=== PATIENT | female | born 1940 | race Caucasian/White ===

== ENCOUNTER 2018-01-23 15:01 | Emergency (ER) | payer MEDICARE, MEDICAID ==
[~2018-01-23] VITALS: Ht 160 cm; Wt 100.7 kg
[~2018-01-23 15:01] MED LIST: ASPI-807 PO; ATOR20TA PO; DICL75TA PO; HYDR1POW18 PO; HYDR1TAB PO; MECL12.582 PO; METO25PO2 PO; POTA20TA74 PO; VALS160T2 PO
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
[2018-01-23 15:22] LABS: BASOPHILS # (AUTO) 0.1 /CMM (0.0-0.2); BASOPHILS % (AUTO) 1.3 % (0.0-2.0); HEMATOCRIT 35 % (33-45); HEMOGLOBIN 11.8 g/dL (11.5-14.8); LYMPHOCYTES # (AUTO) 1.7 /CMM (0.8-4.8); LYMPHOCYTES % (AUTO) 22.1 % (20.0-44.0); MEAN CORPUSCULAR HGB CONC 34 g/dl (31.0-36.0); MEAN CORPUSCULAR VOLUME 93 fL (82-100); MONOCYTES # (AUTO) 0.7 /CMM (0.1-1.30); NEUTROPHILS % (AUTO) 64.6 % (43.0-81.0); PLATELET COUNT (AUTO) 230 /CMM (150-450); RED BLOOD CELL COUNT(AUTO) 3.77 MIL/uL (4.0-5.2); WHITE BLOOD COUNT (AUTO) 7.7 K/uL (4.3-11.0)
[2018-01-23] MEDS ORDERED: ONDANSETRON HCL/PF 4 MG/2 ML VIAL ONE (15:24)
[2018-01-23] MEDS ORDERED: ACETAMINOPHEN ES 500 MG TABLET ONE (15:25)
[2018-01-23] MEDS ORDERED: MORPHINE SULFATE INJ 4 MG/ML DISP.SYRIN ONE (15:25)
[2018-01-23] MEDS ORDERED: ONDANSETRON HCL/PF 4 MG/2 ML VIAL IVP ONE (15:30)
[2018-01-23] MEDS ORDERED: ACETAMINOPHEN ES 500 MG TABLET PO ONE (15:30)
[2018-01-23] MEDS ORDERED: MORPHINE SULFATE INJ 2 MG/ML DISP.SYRIN IV ONE (15:30)
[2018-01-23] MEDS ORDERED: IV NS 0.9% 500 ML BAG IV ONE (15:30)
[2018-01-23 15:38] LABS: ALANINE AMINOTRANSFERASE 21 U/L (12-78); ALBUMIN 3.5 g/dL (3.4-5.0); ALKALINE PHOSPHATASE 57 U/L (46-116); ASPARTATE AMINOTRANSFERASE 16 U/L (15-37); BILIRUBIN,DIRECT 0.1 mg/dL (0.0-0.2); BILIRUBIN,TOTAL 0.3 mg/dL (0.2-1.0); CALCIUM, SERUM 8.5 mg/dL (8.5-10.1); CARBON DIOXIDE 32 mmol/L (21-32); CHLORIDE 104 mmol/L (98-107); CREATININE 0.9 mg/dL (0.6-1.3); GLUCOSE 142 mg/dL (74-106); POTASSIUM 3.7 mmol/L (3.5-5.1); SODIUM SERUM 138 mmol/L (136-145); UREA NITROGEN, BLOOD 18 mg/dL (7-18)
--- NOTE | 2018-01-23 15:38 | NUR ---
PER DR BASURTO. DO NOT WAIT FOR LAB RESULTS FOR CT SCAN.
[2018-01-23] MEDS ORDERED: IV NS 0.9% 250 ML IV ONE (15:40)
[2018-01-23] MEDS ORDERED: IOHEXOL-300 100 ML VIAL IV ONE (15:40)
[2018-01-23] MEDS ORDERED: CT SWABBABLE VALVE TRANS SET 1 EA INFUS.SET MC ONE (15:40)
--- NOTE | 2018-01-23 16:52 | NUR ---
PT RETURN FROM [facility]
[2018-01-23 18:23] VITALS: BP 136/78
== END 2018-01-23 18:23 | disposition home or self-care (01) ==
LOC: ER 15:09
DX: S63.591A Other specified sprain of right wrist, initial encounter (principal); S00.531A Contusion of lip, initial encounter; S29.8XXA Other specified injuries of thorax, initial encounter; R42 Dizziness and giddiness; E11.9 Type 2 diabetes mellitus without complications; R10.13 Epigastric pain; R07.89 Other chest pain; I10 Essential (primary) hypertension; Z96.653 Presence of artificial knee joint, bilateral; Z90.710 Acquired absence of both cervix and uterus; Z88.6 Allergy status to analgesic agent; Z79.82 Long term (current) use of aspirin; V49.59XA Passenger injured in collision with other motor vehicles in traffic accident, initial encounter; Y93.89 Activity, other specified; Y92.410 Unspecified street and highway as the place of occurrence of the external cause; Y99.8 Other external cause status
CPT/HCPCS: 29125; 36415; 71260; 73110; 74177; 80048; 80076; 83690; 84484; 85025; 93005; 96374; 96375; 99284; A4606; A6402; A6403; J2270; J2405; J7040; J7050; Q9967; Z7610

== ENCOUNTER 2023-09-05 16:07 | Inpatient (IN) | payer MEDICARE, OTHER ==
[~2023-09-05] VITALS: Ht 162.6 cm; Wt 87.5 kg
[2023-09-05] VITALS (7 sets, daily range): BP systolic 98–164; BP diastolic 56–132; TEMP 97.9; O2SAT 95–98
[~2023-09-05 16:07] MED LIST changes: +MECL-182 PO; -MECL12.582 PO
[2023-09-05] MEDS ORDERED: FUROSEMIDE 40 MG/4 ML VIAL ONE (16:19)
[2023-09-05] MEDS ORDERED: NITROGLYCERIN PACKET 1 GM PACKET ONE (16:20)
[2023-09-05] MEDS: FUROSEMIDE 40 MG/4 ML VIAL IV ONE (16:24)
[2023-09-05] MEDS: NITROGLYCERIN PACKET 1 GM PACKET TD ONE (16:24)
[2023-09-05 16:29] LABS: BASOPHILS # (AUTO) 0.1 K/uL (0.0-0.2); BASOPHILS % (AUTO) 1.2 % (0.0-2.0); EOSINOPHILS # (AUTO) 0.1 K/uL (0.0-0.7); EOSINOPHILS % (AUTO) 0.7 % (0.0-6.0); HEMATOCRIT 32 % (33-45); HEMOGLOBIN 10.2 g/dL (11.5-14.8); LYMPHOCYTES # (AUTO) 1.3 K/uL (0.8-4.8); LYMPHOCYTES % (AUTO) 10.7 % (20.0-44.0); MEAN CORPUSCULAR HEMOGLOBIN 29 PG (26.0-33.0); MEAN CORPUSCULAR HGB CONC 32 g/dl (31.0-36.0); MEAN CORPUSCULAR VOLUME 89 fL (82-100); MONOCYTES # (AUTO) 1.3 K/uL (0.1-1.30); MONOCYTES % (AUTO) 10.8 % (2.0-12.0); NEUTROPHILS # (AUTO) 9.4 K/uL (1.8-8.9); NEUTROPHILS % (AUTO) 76.6 % (43.0-81.0); PLATELET COUNT (AUTO) 368 K/uL (150-450); RED BLOOD CELL COUNT(AUTO) 3.55 MIL/uL (4.0-5.2); WHITE BLOOD COUNT (AUTO) 12.3 K/uL (4.3-11.0)
[2023-09-05 16:39] LABS: CALCIUM, SERUM 8.3 mg/dL (8.5-10.1); CARBON DIOXIDE 26 mmol/L (21-32); CHLORIDE 100 mmol/L (98-107); CREATININE 0.9 mg/dL (0.6-1.3); GLUCOSE 154 mg/dL (74-106); POTASSIUM 3.4 mmol/L (3.5-5.1); SODIUM SERUM 132 mmol/L (136-145); UREA NITROGEN, BLOOD 11 mg/dL (7-18)
[2023-09-05 16:52] LABS: NT-PRO BNP 3893 pg/mL (0-125)
[2023-09-05] MEDS ORDERED: CLON0.1T PO (17:50)
[2023-09-05] MEDS ORDERED: GLIM2TAB31 PO (17:50)
[2023-09-05] MEDS ORDERED: PREG-58 PO (17:50)
[2023-09-05] MEDS ORDERED: MECL-182 PO (17:50)
[2023-09-05] MEDS ORDERED: TRAM50TA2 PO (17:50)
[2023-09-05] MEDS ORDERED: POTA10TA11 PO (17:50)
[2023-09-05] MEDS ORDERED: HYDR100T27 PO (17:50)
[2023-09-05] MEDS ORDERED: METO50TA16 PO (17:50)
[2023-09-05] MEDS ORDERED: FURO40TA5 PO (17:50)
[2023-09-05] MEDS ORDERED: IPRATROPIUM/ALBUTEROL INHALER IH SCH (18:00)
[2023-09-05] MEDS ORDERED: hydrALAZINE HCL IV 20 MG VIAL IV PRN (18:00)
[2023-09-05] MEDS ORDERED: ONDANSETRON HCL/PF 4 MG/2 ML VIAL IVP PRN (18:00)
[2023-09-05] MEDS ORDERED: DEXTROSE 50%-WATER 50 ML DISP.SYRIN IV PRN (18:00)
[2023-09-05] MEDS: IPRATROPIUM NEB FS 0.5 MG/2.5 ML AMPUL.NEB NEB SCH (20:41)
[2023-09-05] MEDS: ALBUTEROL FS 2.5 MG/0.5 ML VIAL.NEB NEB PRN (20:41)
[2023-09-05] MEDS: ALBUTEROL FS 2.5 MG/3 ML VIAL.NEB NEB SCH (20:43)
[2023-09-05] MEDS: FUROSEMIDE 40 MG/4 ML VIAL IV SCH (21:13)
[2023-09-05] MEDS: HEPARIN SODIUM, PORCINE 5000 UNITS/1 ML VIAL SQ SCH (21:13)
[2023-09-05] MEDS: BLOOD SUGAR DIAGNOSTIC 1 EACH STRIP VI SCH (21:23)
[2023-09-05] MEDS: *INSULIN REGULAR(HUMULIN R)HUM 100 UNIT/ML VIAL SQ PRN (21:25)
[2023-09-06] VITALS (109 sets, daily range): BP systolic 64–179; BP diastolic 40–106; TEMP 97.1–98.1; O2SAT 68–100
[2023-09-06 04:57] LABS: BASOPHILS # (AUTO) 0.1 K/uL (0.0-0.2); BASOPHILS % (AUTO) 0.5 % (0.0-2.0); EOSINOPHILS % (AUTO) 0.3 % (0.0-6.0); HEMATOCRIT 36 % (33-45); HEMOGLOBIN 11.5 g/dL (11.5-14.8); LYMPHOCYTES # (AUTO) 1.2 K/uL (0.8-4.8); LYMPHOCYTES % (AUTO) 10.2 % (20.0-44.0); MEAN CORPUSCULAR HEMOGLOBIN 29 PG (26.0-33.0); MEAN CORPUSCULAR HGB CONC 32 g/dl (31.0-36.0); MEAN CORPUSCULAR VOLUME 90 fL (82-100); MONOCYTES # (AUTO) 1.1 K/uL (0.1-1.30); MONOCYTES % (AUTO) 9.3 % (2.0-12.0); NEUTROPHILS # (AUTO) 9.2 K/uL (1.8-8.9); NEUTROPHILS % (AUTO) 79.7 % (43.0-81.0); PLATELET COUNT (AUTO) 333 K/uL (150-450); RED BLOOD CELL COUNT(AUTO) 3.96 MIL/uL (4.0-5.2); RED CELL DISTRIBUTION WIDTH 14.2 % (11.5-15.0); WHITE BLOOD COUNT (AUTO) 11.5 K/uL (4.3-11.0)
[2023-09-06 05:22] LABS: ALANINE AMINOTRANSFERASE 22 U/L (12-78); ALBUMIN 2.2 g/dL (3.4-5.0); ALKALINE PHOSPHATASE 87 U/L (46-116); ASPARTATE AMINOTRANSFERASE 16 U/L (15-37); CALCIUM, SERUM 8.5 mg/dL (8.5-10.1); CARBON DIOXIDE 26 mmol/L (21-32); CHLORIDE 102 mmol/L (98-107); CREATININE 0.8 mg/dL (0.6-1.3); GLUCOSE 133 mg/dL (74-106); MAGNESIUM 1.7 mg/dL (1.8-2.4); PHOSPHORUS 3.4 mg/dL (2.5-4.9); SODIUM SERUM 140 mmol/L (136-145); UREA NITROGEN, BLOOD 11 mg/dL (7-18)
[2023-09-06] MEDS: ACETAMINOPHEN 325 MG TABLET PO PRN (05:36)
[2023-09-06] MEDS: NOREPINEPHRINE 8 MG in IV D5W 242 ML IV PRN (06:44)
[2023-09-06] MEDS: CLONIDINE HCL 0.1 MG TABLET PO SCH (08:16)
[2023-09-06] MEDS: hydrALAZINE HCL 50 MG TABLET PO SCH (08:16)
[2023-09-06] MEDS: METOPROLOL TARTRATE 50 MG TABLET PO SCH (08:17)
[2023-09-06] MEDS: PREGABALIN 25 MG CAPSULE PO SCH (08:40)
[2023-09-06] MEDS: FUROSEMIDE 40 MG/4 ML VIAL IV SCH (09:00)
[2023-09-06] MEDS: GABAPENTIN 300 MG CAPSULE PO SCH (09:07)
[2023-09-06] MEDS: AMIODARONE 150 MG in IV D5W 100 ML IV ONE (09:14)
[2023-09-06] MEDS: PHENYLEPHRINE 50 MG in IV NS 0.9% 245 ML IV PRN (09:15)
[2023-09-06] MEDS: AMIODARONE 450 MG in IV D5W 241 ML IV PRN ×2 (09:17→09:40)
[2023-09-06] MEDS: POTASSIUM CL. PREMIX PERIPHER. 50 ML IV SCH (09:41)
[2023-09-06] MEDS ORDERED: MAGNESIUM OXIDE 400 MG TABLET PO ONE (11:00)
[2023-09-06] MEDS: MORPHINE SULFATE INJ 2 MG/ML DISP.SYRIN IV PRN (11:00)
[2023-09-06] MEDS: ALBUMIN 25% 25 GM in PREMIX 1 EA IV ONE (13:02)
[2023-09-06] MEDS: Magnesium 1GM/D5W 100ML PREMIX 100 ML IV SCH (16:31)
[2023-09-06] MEDS: APIXABAN 5 MG TABLET PO SCH (17:05)
[2023-09-06 19:53] LABS: APPEARANCE,URINE CLEAR (CLEAR); BILIRUBIN,URINE NEGATIVE (NEGATIVE); BLOOD, URINE TRACE-INTA Ery/uL (NEGATIVE); COLOR,URINE YELLOW (YELLOW); KETONES,URINE NEGATIVE (NEGATIVE); LEUKOCYTE ESTERASE ,URINE NEGATIVE (NEGATIVE); NITRITE, URINE NEGATIVE (NEGATIVE); PROTEIN,URINE NEGATIVE (NEGATIVE); UGLUCOSE NEGATIVE (NEGATIVE); UROBILINOGEN,URINE 0.2 EU/dL (0.2)
[2023-09-06 20:12] LABS: ADD URINE CULTURE YES; BACTERIA,URINE 2+ /HPF (None Seen); TRICHOMONAS,URINE None Seen /HPF (None Seen); TYROSINE CRYSTAL,URINE Few /HPF (None Seen); YEAST,URINE None Seen /HPF (None Seen)
[2023-09-06 20:13] LABS: FINE GRANULAR CASTS,URINE Few /LPF (None Seen); HYALINE CASTS, URINE Few /LPF (None Seen)
[2023-09-07] VITALS (98 sets, daily range): BP systolic 70–160; BP diastolic 39–131; TEMP 97.2–99.3; O2SAT 91–100
[2023-09-07 05:11] LABS: BASOPHILS # (AUTO) 0.2 K/uL (0.0-0.2); EOSINOPHILS # (AUTO) 0.1 K/uL (0.0-0.7); EOSINOPHILS % (AUTO) 0.3 % (0.0-6.0); HEMATOCRIT 33 % (33-45); HEMOGLOBIN 10.5 g/dL (11.5-14.8); LYMPHOCYTES % (AUTO) 5.6 % (20.0-44.0); MEAN CORPUSCULAR HEMOGLOBIN 29 PG (26.0-33.0); MEAN CORPUSCULAR HGB CONC 32 g/dl (31.0-36.0); MEAN CORPUSCULAR VOLUME 91 fL (82-100); MONOCYTES # (AUTO) 1.4 K/uL (0.1-1.30); MONOCYTES % (AUTO) 8.4 % (2.0-12.0); NEUTROPHILS # (AUTO) 14.5 K/uL (1.8-8.9); NEUTROPHILS % (AUTO) 84.7 % (43.0-81.0); PLATELET COUNT (AUTO) 331 K/uL (150-450); RED BLOOD CELL COUNT(AUTO) 3.59 MIL/uL (4.0-5.2); RED CELL DISTRIBUTION WIDTH 14.7 % (11.5-15.0); WHITE BLOOD COUNT (AUTO) 17.1 K/uL (4.3-11.0)
[2023-09-07] MEDS: VANCOMYCIN 1.5 GM in IV D5W 500 ML IV ONE (09:45)
[2023-09-07 09:55] LABS: CALCIUM, SERUM 8.1 mg/dL (8.5-10.1); CARBON DIOXIDE 29 mmol/L (21-32); CHLORIDE 100 mmol/L (98-107); CREATININE 1.4 mg/dL (0.6-1.3); GLUCOSE 135 mg/dL (74-106); MAGNESIUM 1.9 mg/dL (1.8-2.4); PHOSPHORUS 3.4 mg/dL (2.5-4.9); POTASSIUM 3.7 mmol/L (3.5-5.1); SODIUM SERUM 139 mmol/L (136-145); UREA NITROGEN, BLOOD 21 mg/dL (7-18)
[2023-09-07] MEDS: INSULIN REGULAR, HUMAN 100 UNIT/ML 3 ML VIAL SQ PRN (11:30)
[2023-09-07] MEDS: FUROSEMIDE 20 MG/2 ML VIAL IV SCH (11:37)
[2023-09-07] MEDS: CEFEPIME 2 GM in IV D5W 100 ML IV SCH (11:46)
[2023-09-07] MEDS: AMIODARONE HCL 200 MG TABLET PO SCH (13:08)
[2023-09-07] MEDS: AMIODARONE 450 MG in IV D5W 241 ML IV PRN (18:09)
[2023-09-07] MEDS: AMIODARONE 150 MG in IV D5W 100 ML IV ONE (18:09)
[2023-09-07] MEDS: VANCOMYCIN 750 MG in IV D5W 250 ML IV SCH (21:32)
[2023-09-08] VITALS (85 sets, daily range): BP systolic 74–150; BP diastolic 22–119; TEMP 98.1–99.3; O2SAT 91–100
[2023-09-08 05:19] LABS: BASOPHILS # (AUTO) 0.1 K/uL (0.0-0.2); BASOPHILS % (AUTO) 0.5 % (0.0-2.0); EOSINOPHILS # (AUTO) 0.3 K/uL (0.0-0.7); EOSINOPHILS % (AUTO) 1.8 % (0.0-6.0); HEMATOCRIT 36 % (33-45); HEMOGLOBIN 11.6 g/dL (11.5-14.8); LYMPHOCYTES % (AUTO) 6.6 % (20.0-44.0); MEAN CORPUSCULAR HEMOGLOBIN 29 PG (26.0-33.0); MEAN CORPUSCULAR HGB CONC 32 g/dl (31.0-36.0); MEAN CORPUSCULAR VOLUME 90 fL (82-100); MONOCYTES # (AUTO) 1.3 K/uL (0.1-1.30); MONOCYTES % (AUTO) 8.7 % (2.0-12.0); NEUTROPHILS % (AUTO) 82.4 % (43.0-81.0); PLATELET COUNT (AUTO) 357 K/uL (150-450); RED BLOOD CELL COUNT(AUTO) 4.01 MIL/uL (4.0-5.2); RED CELL DISTRIBUTION WIDTH 14.6 % (11.5-15.0); WHITE BLOOD COUNT (AUTO) 14.6 K/uL (4.3-11.0)
[2023-09-08 05:30] LABS: ALANINE AMINOTRANSFERASE 11 U/L (12-78); ALBUMIN 2.1 g/dL (3.4-5.0); ALKALINE PHOSPHATASE 87 U/L (46-116); ASPARTATE AMINOTRANSFERASE 22 U/L (15-37); BILIRUBIN,TOTAL 1.1 mg/dL (0.2-1.0); CALCIUM, SERUM 8.3 mg/dL (8.5-10.1); CARBON DIOXIDE 28 mmol/L (21-32); CHLORIDE 101 mmol/L (98-107); CREATININE 1.3 mg/dL (0.6-1.3); GLUCOSE 121 mg/dL (74-106); POTASSIUM 3.5 mmol/L (3.5-5.1); SODIUM SERUM 138 mmol/L (136-145); TOTAL PROTEIN, SERUM 7.2 g/dL (6.4-8.2); UREA NITROGEN, BLOOD 25 mg/dL (7-18)
[2023-09-08 09:40] LABS: ABG BASE EXCESS 0.3 mmol/L (-2.0-2.0); ABG OXYGEN SATURATION 98.4 % (92.0-98.5); ABG PCO2 38.2 mmHg (35.0-45.0); ABG PH 7.425 (7.350-7.450); ABG PO2 139.7 mmHg (75.0-100.0); ABG TOTAL HEMOGLOBIN 12.1 G/dL (12.0-16.0); AaDO2 173.8 mmHg; COHb 0.2 % (0.5-1.5); MetHb 0.1 % (0.0-1.5); O2Hb 98.1 % (94.0-97.0); SITE, ABG Right Radial; VENT MODE, BG 15/5 r18 50%
[2023-09-08] MEDS: CEFEPIME 1 GM in IV D5W 50 ML IV SCH (10:16)
[2023-09-08] MEDS ORDERED: ALBUTEROL FS 2.5 MG/3 ML VIAL.NEB NEB PRN (10:30)
[2023-09-08] MEDS: AMIODARONE HCL 200 MG TABLET PO SCH (12:55)
[2023-09-09] VITALS (21 sets, daily range): BP systolic 90–135; BP diastolic 45–81; TEMP 97.5–98.7; O2SAT 90–99
[2023-09-09 04:27] LABS: BASOPHILS # (AUTO) 0.1 K/uL (0.0-0.2); BASOPHILS % (AUTO) 0.9 % (0.0-2.0); EOSINOPHILS # (AUTO) 0.4 K/uL (0.0-0.7); EOSINOPHILS % (AUTO) 3.3 % (0.0-6.0); HEMATOCRIT 30 % (33-45); HEMOGLOBIN 9.9 g/dL (11.5-14.8); LYMPHOCYTES # (AUTO) 0.7 K/uL (0.8-4.8); LYMPHOCYTES % (AUTO) 6.4 % (20.0-44.0); MEAN CORPUSCULAR HEMOGLOBIN 29 PG (26.0-33.0); MEAN CORPUSCULAR HGB CONC 33 g/dl (31.0-36.0); MEAN CORPUSCULAR VOLUME 89 fL (82-100); MONOCYTES # (AUTO) 1.1 K/uL (0.1-1.30); MONOCYTES % (AUTO) 10.1 % (2.0-12.0); NEUTROPHILS # (AUTO) 8.6 K/uL (1.8-8.9); NEUTROPHILS % (AUTO) 79.3 % (43.0-81.0); PLATELET COUNT (AUTO) 313 K/uL (150-450); RED BLOOD CELL COUNT(AUTO) 3.39 MIL/uL (4.0-5.2); RED CELL DISTRIBUTION WIDTH 14.3 % (11.5-15.0); WHITE BLOOD COUNT (AUTO) 10.9 K/uL (4.3-11.0)
[2023-09-09 05:00] LABS: CALCIUM, SERUM 8.1 mg/dL (8.5-10.1); CARBON DIOXIDE 28 mmol/L (21-32); CHLORIDE 104 mmol/L (98-107); CREATININE 1.2 mg/dL (0.6-1.3); GLUCOSE 131 mg/dL (74-106); MAGNESIUM 1.7 mg/dL (1.8-2.4); PHOSPHORUS 3.6 mg/dL (2.5-4.9); POTASSIUM 3.1 mmol/L (3.5-5.1); SODIUM SERUM 140 mmol/L (136-145); UREA NITROGEN, BLOOD 28 mg/dL (7-18)
[2023-09-09] MEDS: POTASSIUM CHLORIDE 20 MEQ TAB.PRT.SR PO ONE (09:03)
[2023-09-09] MEDS: MIDODRINE HCL (5MG) 5 MG TABLET PO SCH (09:27)
[2023-09-09] MEDS ORDERED: MAGNESIUM OXIDE 400 MG TABLET PO SCH (10:00)
[2023-09-09] MEDS: VANCOMYCIN HCL 1.25 GM in IV D5W 250 ML IV SCH (13:38)
[2023-09-09] MEDS: MAGNESIUM OXIDE 400 MG TABLET PO ONE (22:01)
[2023-09-10] VITALS (14 sets, daily range): BP systolic 110–154; BP diastolic 53–81; TEMP 97.3–98.6; O2SAT 92–99
[2023-09-10 07:23] LABS: BASOPHILS # (AUTO) 0.1 K/uL (0.0-0.2); BASOPHILS % (AUTO) 0.7 % (0.0-2.0); EOSINOPHILS # (AUTO) 0.4 K/uL (0.0-0.7); EOSINOPHILS % (AUTO) 4.8 % (0.0-6.0); HEMATOCRIT 33 % (33-45); HEMOGLOBIN 10.7 g/dL (11.5-14.8); LYMPHOCYTES # (AUTO) 0.8 K/uL (0.8-4.8); LYMPHOCYTES % (AUTO) 9.3 % (20.0-44.0); MEAN CORPUSCULAR HEMOGLOBIN 29 PG (26.0-33.0); MEAN CORPUSCULAR HGB CONC 33 g/dl (31.0-36.0); MEAN CORPUSCULAR VOLUME 90 fL (82-100); MONOCYTES # (AUTO) 0.8 K/uL (0.1-1.30); MONOCYTES % (AUTO) 9.7 % (2.0-12.0); NEUTROPHILS # (AUTO) 6.1 K/uL (1.8-8.9); NEUTROPHILS % (AUTO) 75.5 % (43.0-81.0); PLATELET COUNT (AUTO) 328 K/uL (150-450); RED BLOOD CELL COUNT(AUTO) 3.64 MIL/uL (4.0-5.2); RED CELL DISTRIBUTION WIDTH 14.3 % (11.5-15.0); WHITE BLOOD COUNT (AUTO) 8.1 K/uL (4.3-11.0)
[2023-09-10 07:44] LABS: CALCIUM, SERUM 8.6 mg/dL (8.5-10.1); CARBON DIOXIDE 27 mmol/L (21-32); CHLORIDE 105 mmol/L (98-107); CREATININE 1.1 mg/dL (0.6-1.3); GLUCOSE 126 mg/dL (74-106); POTASSIUM 2.9 mmol/L (3.5-5.1); SODIUM SERUM 146 mmol/L (136-145); UREA NITROGEN, BLOOD 24 mg/dL (7-18)
[2023-09-10 07:45] LABS: ALANINE AMINOTRANSFERASE 18 U/L (12-78); ALKALINE PHOSPHATASE 79 U/L (46-116); ASPARTATE AMINOTRANSFERASE 24 U/L (15-37); BILIRUBIN,TOTAL 0.8 mg/dL (0.2-1.0); TOTAL PROTEIN, SERUM 6.9 g/dL (6.4-8.2)
[2023-09-10 08:10] LABS: MAGNESIUM 1.9 mg/dL (1.8-2.4); PHOSPHORUS 3.1 mg/dL (2.5-4.9)
[2023-09-10] MEDS: CEFEPIME 2 GM in IV D5W 100 ML IV SCH (09:40)
[2023-09-10] MEDS: POTASSIUM CL. PREMIX PERIPHER. 50 ML IV SCH (10:26)
[2023-09-10] MEDS: GLUCERNA SHAKE 237 ML CAN PO SCH (17:22)
[2023-09-11] VITALS (11 sets, daily range): BP systolic 102–130; BP diastolic 63–66; TEMP 97.9–98.2; O2SAT 92–98
[2023-09-11 06:38] LABS: MAGNESIUM 1.8 mg/dL (1.8-2.4); PHOSPHORUS 3.1 mg/dL (2.5-4.9)
[2023-09-11 06:54] LABS: ALANINE AMINOTRANSFERASE 18 U/L (12-78); ALBUMIN 1.9 g/dL (3.4-5.0); ALKALINE PHOSPHATASE 67 U/L (46-116); ASPARTATE AMINOTRANSFERASE 26 U/L (15-37); BILIRUBIN,TOTAL 0.5 mg/dL (0.2-1.0); CALCIUM, SERUM 8.3 mg/dL (8.5-10.1); CARBON DIOXIDE 29 mmol/L (21-32); CHLORIDE 107 mmol/L (98-107); CREATININE 1.1 mg/dL (0.6-1.3); GLUCOSE 112 mg/dL (74-106); POTASSIUM 3.3 mmol/L (3.5-5.1); SODIUM SERUM 144 mmol/L (136-145); TOTAL PROTEIN, SERUM 6.6 g/dL (6.4-8.2); UREA NITROGEN, BLOOD 22 mg/dL (7-18)
[2023-09-11 06:59] LABS: BASOPHILS # (AUTO) 0.1 K/uL (0.0-0.2); BASOPHILS % (AUTO) 1.2 % (0.0-2.0); EOSINOPHILS # (AUTO) 0.4 K/uL (0.0-0.7); EOSINOPHILS % (AUTO) 8.9 % (0.0-6.0); HEMATOCRIT 29 % (33-45); HEMOGLOBIN 9.6 g/dL (11.5-14.8); LYMPHOCYTES # (AUTO) 0.7 K/uL (0.8-4.8); LYMPHOCYTES % (AUTO) 14.7 % (20.0-44.0); MEAN CORPUSCULAR HEMOGLOBIN 30 PG (26.0-33.0); MEAN CORPUSCULAR HGB CONC 33 g/dl (31.0-36.0); MEAN CORPUSCULAR VOLUME 90 fL (82-100); MONOCYTES % (AUTO) 19.1 % (2.0-12.0); NEUTROPHILS # (AUTO) 2.8 K/uL (1.8-8.9); NEUTROPHILS % (AUTO) 56.1 % (43.0-81.0); PLATELET COUNT (AUTO) 266 K/uL (150-450); RED BLOOD CELL COUNT(AUTO) 3.25 MIL/uL (4.0-5.2)
[2023-09-11 09:45] LABS: EOSINOPHILS % (MANUAL) 8 % (0-4); LYMPHOCYTES % (MANUAL) 17 % (16-48); MONOCYTES % (MANUAL) 14 % (0-11.0); NEUTROPHILS % (MANUAL) 61 (42-76); PLATELET ESTIMATE ADEQUATE
[2023-09-11 09:48] LABS: STOMATOCYTES 1+
[2023-09-11] MEDS: POTASSIUM CHLORIDE 20 MEQ TAB.PRT.SR PO SCH (10:36)
[2023-09-11] MEDS ORDERED: APIX5TAB PO (13:48)
[2023-09-11] MEDS ORDERED: ALBUT2 NEB (13:48)
[2023-09-11] MEDS ORDERED: INSU100V28 SQ (13:48)
[2023-09-11] MEDS ORDERED: MIDO5TAB4 PO (13:48)
[2023-09-11] MEDS ORDERED: IPRA0.2S9 NEB (13:48)
[2023-09-11] MEDS ORDERED: AMIO200T7 PO (13:48)
[2023-09-11] MEDS ORDERED: AMOX-430 PO (14:56)
== END 2023-09-11 16:58 | DRG 291 ==
LOC: ER 16:18 → ICU 19:05 → TELE-TD 09-09 10:31 → TELE1 09-10 13:09 → MEDSG1 09-11 09:47
PROVIDERS: ADMIT Internal Medicine; ATTEND Student in an Organized Health Care Education/Training Program
PROC: 5A09457 Assistance with Respiratory Ventilation, 24-96 Consecutive Hours, Continuous Positive Airway Pressure (ICD-10-PCS; principal; 2023-09-05)
DX: I13.0 Hypertensive heart and chronic kidney disease with heart failure and stage 1 through stage 4 chronic kidney disease, or unspecified chronic kidney disease (principal); I50.33 Acute on chronic diastolic (congestive) heart failure; J96.01 Acute respiratory failure with hypoxia; R57.1 Hypovolemic shock; N17.9 Acute kidney failure, unspecified; D64.9 Anemia, unspecified; N18.9 Chronic kidney disease, unspecified; I25.2 Old myocardial infarction; H93.19 Tinnitus, unspecified ear; E11.40 Type 2 diabetes mellitus with diabetic neuropathy, unspecified; E11.22 Type 2 diabetes mellitus with diabetic chronic kidney disease; M06.9 Rheumatoid arthritis, unspecified; Z90.710 Acquired absence of both cervix and uterus; Z98.890 Other specified postprocedural states; Z88.8 Allergy status to other drugs, medicaments and biological substances; Z79.899 Other long term (current) drug therapy; Z79.82 Long term (current) use of aspirin; D72.829 Elevated white blood cell count, unspecified; E83.42 Hypomagnesemia; E87.6 Hypokalemia; I48.0 Paroxysmal atrial fibrillation
CPT/HCPCS: 36415; 36600; 71045-TC; 80048-TC; 80053-TC; 80202-TC; 81001; 82803-TC; 82962-TC; 83735-TC; 83880; 84100-TC; 84484-TC; 85025-TC; 87086-TC; 92526; 92611-TC; 93307-TC; 93970-TC; 94660; 94799-TC; 97110-TC; 97116-TC; 97530-TC; 99082-TC; A4216; A4223; G0378; J0282; J0360; J0692; J1644; J1815; J1940; J2270; J3371; J3475; J3480; J7050; J7060; P9047

== ENCOUNTER 2023-09-26 08:49 | Inpatient (IN) | payer MEDICARE, OTHER ==
[~2023-09-26] VITALS: Ht 162.6 cm; Wt 88.5 kg
[~2023-09-26 08:49] MED LIST changes: +ALBUT2 NEB; +AMIO200T7 PO; +AMOX-430 PO; +APIX5TAB PO; -ASPI-807 PO; -ATOR20TA PO; +CLON0.1T PO; -DICL75TA PO; +FURO40TA5 PO; +GLIM2TAB31 PO; +HYDR100T27 PO; -HYDR1POW18 PO; -HYDR1TAB PO; +INSU100V28 SQ; +IPRA0.2S9 NEB; -METO25PO2 PO; +METO50TA16 PO; +MIDO5TAB4 PO; +POTA10TA11 PO; -POTA20TA74 PO; +PREG-58 PO; +TRAM50TA2 PO; -VALS160T2 PO
[2023-09-26 09:37] LABS: BASOPHILS # (AUTO) 0.1 K/uL (0.0-0.2); EOSINOPHILS % (AUTO) 0.2 % (0.0-6.0); HEMATOCRIT 26 % (33-45); HEMOGLOBIN 8.6 g/dL (11.5-14.8); LYMPHOCYTES # (AUTO) 1.1 K/uL (0.8-4.8); LYMPHOCYTES % (AUTO) 12.2 % (20.0-44.0); MEAN CORPUSCULAR HEMOGLOBIN 29 PG (26.0-33.0); MEAN CORPUSCULAR HGB CONC 33 g/dl (31.0-36.0); MEAN CORPUSCULAR VOLUME 88 fL (82-100); MONOCYTES # (AUTO) 1.1 K/uL (0.1-1.30); MONOCYTES % (AUTO) 11.6 % (2.0-12.0); NEUTROPHILS # (AUTO) 6.8 K/uL (1.8-8.9); PLATELET COUNT (AUTO) 180 K/uL (150-450); RED BLOOD CELL COUNT(AUTO) 2.99 MIL/uL (4.0-5.2); RED CELL DISTRIBUTION WIDTH 14.3 % (11.5-15.0); WHITE BLOOD COUNT (AUTO) 9.1 K/uL (4.3-11.0)
[2023-09-26 09:49] LABS: CALCIUM, SERUM 8.5 mg/dL (8.5-10.1); CARBON DIOXIDE 34 mmol/L (21-32); CHLORIDE 98 mmol/L (98-107); CREATININE 1.5 mg/dL (0.6-1.3); GLUCOSE 127 mg/dL (74-106); POTASSIUM 2.9 mmol/L (3.5-5.1); SODIUM SERUM 139 mmol/L (136-145); UREA NITROGEN, BLOOD 29 mg/dL (7-18)
[2023-09-26 09:55] LABS: LACTIC ACID 0.8 mmol/L (0.4-2.0)
[2023-09-26 10:01] LABS: ALBUMIN 2.1 g/dL (3.4-5.0); ALKALINE PHOSPHATASE 71 U/L (46-116); ASPARTATE AMINOTRANSFERASE 7 U/L (15-37); BILIRUBIN,DIRECT 0.3 mg/dL (0.0-0.2); BILIRUBIN,TOTAL 0.6 mg/dL (0.2-1.0); TOTAL PROTEIN, SERUM 7.1 g/dL (6.4-8.2)
[2023-09-26 10:12] LABS: ALANINE AMINOTRANSFERASE 10 U/L (12-78)
[2023-09-26 10:38] LABS: APPEARANCE,URINE CLEAR (CLEAR); BILIRUBIN,URINE NEGATIVE (NEGATIVE); BLOOD, URINE NEGATIVE Ery/uL (NEGATIVE); COLOR,URINE YELLOW (YELLOW); KETONES,URINE NEGATIVE (NEGATIVE); LEUKOCYTE ESTERASE ,URINE NEGATIVE (NEGATIVE); NITRITE, URINE NEGATIVE (NEGATIVE); PH,URINE 5.5 (5.0-8.0); PROTEIN,URINE NEGATIVE (NEGATIVE); UGLUCOSE NEGATIVE (NEGATIVE)
[2023-09-26 10:53] LABS: ADD URINE CULTURE NO; BACTERIA,URINE Rare /HPF (None Seen); RBC,URINE 0-2 /HPF (0-2); SQUAMOUS EPITHELIAL CELL,UR Few /HPF (None Seen); WBC,URINE 0-2 /HPF (0-3)
[2023-09-26] MEDS ORDERED: APIX5TAB PO (10:53)
[2023-09-26] MEDS ORDERED: AMIO200T5 PO (10:53)
[2023-09-26 12:00] VITALS: BP 106/56; TEMP 98.2; O2SAT 100
[2023-09-26] MEDS ORDERED: MAG HYDROX/AL HYDROX/SIMETH 30 ML UDC PO PRN (12:30)
[2023-09-26] MEDS ORDERED: ZOLPIDEM TARTRATE 5 MG TABLET PO PRN (12:30)
[2023-09-26] MEDS ORDERED: Z GUARD REMEDY 4 OZ OINT TP PRN (12:30)
[2023-09-26] MEDS ORDERED: ACETAMINOPHEN 325 MG TABLET PO PRN (12:30)
[2023-09-26] MEDS ORDERED: ONDANSETRON HCL/PF 4 MG/2 ML VIAL IVP PRN (12:30)
[2023-09-26] MEDS: POTASSIUM CL. PREMIX PERIPHER. 50 ML IV SCH (14:10)
[2023-09-26] MEDS: FUROSEMIDE 40 MG/4 ML VIAL IV SCH (15:01)
[2023-09-26 16:43] VITALS: BP 115/54; TEMP 98.5; O2SAT 97
[2023-09-26 20:00] VITALS: BP 134/62; TEMP 98.2; O2SAT 97
[2023-09-26] MEDS: INSULIN REGULAR, HUMAN 100 UNIT/ML 3 ML VIAL SQ PRN (22:32)
[2023-09-26] MEDS: BLOOD SUGAR DIAGNOSTIC 1 EACH STRIP VI SCH (22:33)
[2023-09-27] VITALS: BP 107/89; TEMP 98.2; O2SAT 96
[2023-09-27 04:00] VITALS: BP 156/81; TEMP 98.2; O2SAT 100
[2023-09-27 08:00] VITALS: BP 139/54; TEMP 98.4; O2SAT 93
[2023-09-27] MEDS: PANTOPRAZOLE 40 MG TABLET.DR PO SCH (08:01)
[2023-09-27] MEDS: CLONIDINE HCL 0.1 MG TABLET PO SCH (09:00)
[2023-09-27] MEDS: hydrALAZINE HCL 50 MG TABLET PO SCH (09:00)
[2023-09-27] MEDS: PREGABALIN 25 MG CAPSULE PO SCH (09:20)
[2023-09-27] MEDS: METOPROLOL TARTRATE 50 MG TABLET PO SCH (09:21)
[2023-09-27] MEDS: MECLIZINE HCL 12.5 MG TABLET PO SCH (09:21)
[2023-09-27] MEDS: AMIODARONE HCL 200 MG TABLET PO SCH (09:23)
[2023-09-27] MEDS: TRAMADOL HCL 50 MG TABLET PO SCH (09:23)
[2023-09-27] MEDS: APIXABAN 2.5 MG TABLET PO SCH (09:26)
[2023-09-27 09:32] LABS: BASOPHILS # (AUTO) 0.1 K/uL (0.0-0.2); BASOPHILS % (AUTO) 1.1 % (0.0-2.0); EOSINOPHILS # (AUTO) 0.1 K/uL (0.0-0.7); EOSINOPHILS % (AUTO) 0.7 % (0.0-6.0); HEMATOCRIT 30 % (33-45); HEMOGLOBIN 9.8 g/dL (11.5-14.8); LYMPHOCYTES # (AUTO) 0.9 K/uL (0.8-4.8); MEAN CORPUSCULAR HEMOGLOBIN 29 PG (26.0-33.0); MEAN CORPUSCULAR HGB CONC 32 g/dl (31.0-36.0); MEAN CORPUSCULAR VOLUME 89 fL (82-100); MONOCYTES # (AUTO) 1.1 K/uL (0.1-1.30); MONOCYTES % (AUTO) 12.4 % (2.0-12.0); NEUTROPHILS # (AUTO) 6.7 K/uL (1.8-8.9); NEUTROPHILS % (AUTO) 75.8 % (43.0-81.0); PLATELET COUNT (AUTO) 206 K/uL (150-450); RED BLOOD CELL COUNT(AUTO) 3.42 MIL/uL (4.0-5.2); RED CELL DISTRIBUTION WIDTH 14.7 % (11.5-15.0); WHITE BLOOD COUNT (AUTO) 8.8 K/uL (4.3-11.0)
[2023-09-27 09:56] LABS: CARBON DIOXIDE 31 mmol/L (21-32); CHLORIDE 101 mmol/L (98-107); CREATININE 1.2 mg/dL (0.6-1.3); GLUCOSE 87 mg/dL (74-106); MAGNESIUM 1.3 mg/dL (1.8-2.4); PHOSPHORUS 3.4 mg/dL (2.5-4.9); POTASSIUM 3.2 mmol/L (3.5-5.1); SODIUM SERUM 142 mmol/L (136-145); UREA NITROGEN, BLOOD 23 mg/dL (7-18)
[2023-09-27 12:00] VITALS: BP 118/67; TEMP 98.2; O2SAT 96
[2023-09-27] MEDS: POTASSIUM CHLORIDE 20 MEQ TAB.PRT.SR PO ONE (13:43)
[2023-09-27 16:00] VITALS: BP 112/64; TEMP 98.2; O2SAT 93
[2023-09-27] MEDS: GLUCERNA SHAKE 237 ML CAN PO SCH (18:54)
[2023-09-28 06:00] VITALS: BP 112/64; TEMP 98.2; O2SAT 93
[2023-09-28 07:50] LABS: BASOPHILS # (AUTO) 0.1 K/uL (0.0-0.2); BASOPHILS % (AUTO) 1.1 % (0.0-2.0); EOSINOPHILS # (AUTO) 0.5 K/uL (0.0-0.7); EOSINOPHILS % (AUTO) 5.5 % (0.0-6.0); HEMATOCRIT 28 % (33-45); LYMPHOCYTES # (AUTO) 1.6 K/uL (0.8-4.8); LYMPHOCYTES % (AUTO) 18.5 % (20.0-44.0); MEAN CORPUSCULAR HEMOGLOBIN 29 PG (26.0-33.0); MEAN CORPUSCULAR HGB CONC 32 g/dl (31.0-36.0); MEAN CORPUSCULAR VOLUME 91 fL (82-100); MONOCYTES # (AUTO) 1.3 K/uL (0.1-1.30); MONOCYTES % (AUTO) 14.5 % (2.0-12.0); NEUTROPHILS # (AUTO) 5.2 K/uL (1.8-8.9); NEUTROPHILS % (AUTO) 60.4 % (43.0-81.0); PLATELET COUNT (AUTO) 182 K/uL (150-450); RED BLOOD CELL COUNT(AUTO) 3.07 MIL/uL (4.0-5.2); RED CELL DISTRIBUTION WIDTH 14.9 % (11.5-15.0); WHITE BLOOD COUNT (AUTO) 8.6 K/uL (4.3-11.0)
[2023-09-28 08:00] VITALS: BP 141/66; TEMP 97.9; O2SAT 97
[2023-09-28 08:26] LABS: CALCIUM, SERUM 8.6 mg/dL (8.5-10.1); CARBON DIOXIDE 27 mmol/L (21-32); CHLORIDE 104 mmol/L (98-107); CREATININE 1.1 mg/dL (0.6-1.3); GLUCOSE 86 mg/dL (74-106); MAGNESIUM 1.6 mg/dL (1.8-2.4); PHOSPHORUS 3.3 mg/dL (2.5-4.9); POTASSIUM 4.2 mmol/L (3.5-5.1); SODIUM SERUM 143 mmol/L (136-145); UREA NITROGEN, BLOOD 26 mg/dL (7-18)
[2023-09-28] MEDS: MAGNESIUM OXIDE 400 MG TABLET PO ONE (09:57)
[2023-09-28 12:00] VITALS: BP 116/60; TEMP 98.1; O2SAT 98
[2023-09-28 17:00] VITALS: BP 106/60; TEMP 98.4; O2SAT 98
[2023-09-28 20:00] VITALS: BP 112/94; TEMP 98.6; O2SAT 99
[2023-09-28] MEDS: *INSULIN REGULAR(HUMULIN R)HUM 100 UNIT/ML VIAL SQ PRN (22:47)
[2023-09-29] VITALS: BP 137/75; TEMP 98.4; O2SAT 98
[2023-09-29 04:00] VITALS: BP 138/79; TEMP 98.1; O2SAT 98
[2023-09-29 07:15] LABS: BASOPHILS # (AUTO) 0.1 K/uL (0.0-0.2); BASOPHILS % (AUTO) 0.9 % (0.0-2.0); EOSINOPHILS # (AUTO) 0.3 K/uL (0.0-0.7); EOSINOPHILS % (AUTO) 3.8 % (0.0-6.0); HEMATOCRIT 31 % (33-45); HEMOGLOBIN 9.7 g/dL (11.5-14.8); LYMPHOCYTES # (AUTO) 0.6 K/uL (0.8-4.8); LYMPHOCYTES % (AUTO) 6.6 % (20.0-44.0); MEAN CORPUSCULAR HEMOGLOBIN 29 PG (26.0-33.0); MEAN CORPUSCULAR HGB CONC 31 g/dl (31.0-36.0); MEAN CORPUSCULAR VOLUME 92 fL (82-100); MONOCYTES % (AUTO) 11.8 % (2.0-12.0); NEUTROPHILS # (AUTO) 6.7 K/uL (1.8-8.9); NEUTROPHILS % (AUTO) 76.9 % (43.0-81.0); PLATELET COUNT (AUTO) 186 K/uL (150-450); RED BLOOD CELL COUNT(AUTO) 3.33 MIL/uL (4.0-5.2); WHITE BLOOD COUNT (AUTO) 8.8 K/uL (4.3-11.0)
[2023-09-29 08:00] VITALS: BP 117/62; TEMP 98.6; O2SAT 95
[2023-09-29 08:42] LABS: ALBUMIN 2.2 g/dL (3.4-5.0); ALKALINE PHOSPHATASE 72 U/L (46-116); ASPARTATE AMINOTRANSFERASE 9 U/L (15-37); BILIRUBIN,TOTAL 0.6 mg/dL (0.2-1.0); CALCIUM, SERUM 8.9 mg/dL (8.5-10.1); CARBON DIOXIDE 31 mmol/L (21-32); CHLORIDE 102 mmol/L (98-107); GLUCOSE 117 mg/dL (74-106); MAGNESIUM 1.6 mg/dL (1.8-2.4); PHOSPHORUS 3.6 mg/dL (2.5-4.9); POTASSIUM 3.5 mmol/L (3.5-5.1); SODIUM SERUM 140 mmol/L (136-145); TOTAL PROTEIN, SERUM 7.3 g/dL (6.4-8.2); UREA NITROGEN, BLOOD 20 mg/dL (7-18)
[2023-09-29 08:50] LABS: ALANINE AMINOTRANSFERASE 9 U/L (12-78)
[2023-09-29] MEDS: MAGNESIUM OXIDE 400 MG TABLET PO ONE (10:32)
[2023-09-29] MEDS: MAGNESIUM HYDROXIDE 30 ML UDC PO PRN (11:51)
[2023-09-29 12:00] VITALS: BP 117/62; TEMP 98.2; O2SAT 95
[2023-09-29 16:00] VITALS: BP 102/64; TEMP 98; O2SAT 95
[2023-09-29] MEDS: CLOTRIMAZOLE 1% 15 GM TUBE TP SCH (17:09)
[2023-09-29 20:15] VITALS: BP 108/67; TEMP 98.1; O2SAT 95
[2023-09-30 00:20] VITALS: BP 115/62; TEMP 98.2; O2SAT 95
[2023-09-30 04:15] VITALS: BP 141/75; TEMP 98.1; O2SAT 94
[2023-09-30 07:14] LABS: BASOPHILS # (AUTO) 0.1 K/uL (0.0-0.2); BASOPHILS % (AUTO) 0.7 % (0.0-2.0); EOSINOPHILS # (AUTO) 0.1 K/uL (0.0-0.7); EOSINOPHILS % (AUTO) 0.8 % (0.0-6.0); HEMATOCRIT 28 % (33-45); HEMOGLOBIN 9.2 g/dL (11.5-14.8); LYMPHOCYTES % (AUTO) 12.9 % (20.0-44.0); MEAN CORPUSCULAR HEMOGLOBIN 29 PG (26.0-33.0); MEAN CORPUSCULAR HGB CONC 33 g/dl (31.0-36.0); MEAN CORPUSCULAR VOLUME 89 fL (82-100); MONOCYTES % (AUTO) 12.8 % (2.0-12.0); NEUTROPHILS # (AUTO) 5.6 K/uL (1.8-8.9); NEUTROPHILS % (AUTO) 72.8 % (43.0-81.0); PLATELET COUNT (AUTO) 203 K/uL (150-450); RED BLOOD CELL COUNT(AUTO) 3.14 MIL/uL (4.0-5.2); RED CELL DISTRIBUTION WIDTH 14.8 % (11.5-15.0); WHITE BLOOD COUNT (AUTO) 7.7 K/uL (4.3-11.0)
[2023-09-30 07:45] LABS: CALCIUM, SERUM 9.1 mg/dL (8.5-10.1); CARBON DIOXIDE 31 mmol/L (21-32); CHLORIDE 101 mmol/L (98-107); CREATININE 1.1 mg/dL (0.6-1.3); GLUCOSE 124 mg/dL (74-106); MAGNESIUM 2.3 mg/dL (1.8-2.4); PHOSPHORUS 3.9 mg/dL (2.5-4.9); POTASSIUM 3.6 mmol/L (3.5-5.1); SODIUM SERUM 140 mmol/L (136-145); UREA NITROGEN, BLOOD 26 mg/dL (7-18)
[2023-09-30 08:00] VITALS: BP 131/56; TEMP 98.4; O2SAT 96
[2023-09-30] MEDS: LACTULOSE 10 G/15 ML UDC (PYXIS) PO ONE (14:57)
[2023-09-30] MEDS: SORBITOL SOLUTION 70% 30 ML SOLUTION PO ONE (15:16)
[2023-09-30 16:00] VITALS: BP 120/70; TEMP 98.4; O2SAT 94
[2023-09-30 18:10] VITALS: O2SAT 96
[2023-09-30 20:00] VITALS: BP 109/52; TEMP 98.4; O2SAT 94
[2023-10-01 04:00] VITALS: BP 132/77; TEMP 98.2; O2SAT 96
[2023-10-01] MEDS ORDERED: NA PHOS,M-B/NA PHOS,DI-BA 1 EA ENEMA RC PRN (07:00)
[2023-10-01 07:10] LABS: BASOPHILS # (AUTO) 0.1 K/uL (0.0-0.2); BASOPHILS % (AUTO) 0.8 % (0.0-2.0); EOSINOPHILS # (AUTO) 0.2 K/uL (0.0-0.7); EOSINOPHILS % (AUTO) 2.4 % (0.0-6.0); HEMATOCRIT 30 % (33-45); HEMOGLOBIN 9.8 g/dL (11.5-14.8); LYMPHOCYTES # (AUTO) 1.3 K/uL (0.8-4.8); LYMPHOCYTES % (AUTO) 16.3 % (20.0-44.0); MEAN CORPUSCULAR HEMOGLOBIN 29 PG (26.0-33.0); MEAN CORPUSCULAR HGB CONC 33 g/dl (31.0-36.0); MEAN CORPUSCULAR VOLUME 90 fL (82-100); MONOCYTES % (AUTO) 12.6 % (2.0-12.0); NEUTROPHILS # (AUTO) 5.5 K/uL (1.8-8.9); NEUTROPHILS % (AUTO) 67.9 % (43.0-81.0); PLATELET COUNT (AUTO) 196 K/uL (150-450); RED BLOOD CELL COUNT(AUTO) 3.34 MIL/uL (4.0-5.2); RED CELL DISTRIBUTION WIDTH 14.6 % (11.5-15.0)
[2023-10-01 07:30] LABS: CALCIUM, SERUM 8.8 mg/dL (8.5-10.1); CARBON DIOXIDE 37 mmol/L (21-32); CHLORIDE 102 mmol/L (98-107); CREATININE 1.2 mg/dL (0.6-1.3); GLUCOSE 111 mg/dL (74-106); MAGNESIUM 2.5 mg/dL (1.8-2.4); PHOSPHORUS 3.3 mg/dL (2.5-4.9); POTASSIUM 3.5 mmol/L (3.5-5.1); SODIUM SERUM 141 mmol/L (136-145); UREA NITROGEN, BLOOD 30 mg/dL (7-18)
[2023-10-01 12:00] VITALS: BP 110/57; TEMP 98.8; O2SAT 92
[2023-10-01 15:03] VITALS: O2SAT 97
[2023-10-01 16:00] VITALS: BP 106/56; TEMP 98.2; O2SAT 100
[2023-10-01 20:00] VITALS: BP 106/52; TEMP 97.7; O2SAT 96
[2023-10-02 04:00] VITALS: BP 147/73; TEMP 98.1; O2SAT 98
[2023-10-02 08:00] VITALS: BP 122/71; TEMP 98.4; O2SAT 95
[2023-10-02] MEDS: FUROSEMIDE 40 MG TABLET PO SCH (10:25)
[2023-10-02 12:18] VITALS: BP 100/49
[2023-10-03] MEDS ORDERED: PANTOPRAZOLE 40 MG/PACK PACK NG SCH (07:30)
== END 2023-10-02 14:21 | disposition home health service (06) | DRG 291 ==
LOC: ER 09:02 → TELE-TD 11:30 → TELE1 13:02 → MEDSG1 09-30 10:11
PROVIDERS: ADMIT Internal Medicine; ATTEND Nurse Practitioner Acute Care
PROC: 05HC33Z Insertion of Infusion Device into Left Basilic Vein, Percutaneous Approach (ICD-10-PCS; principal; 2023-09-30)
DX: I13.0 Hypertensive heart and chronic kidney disease with heart failure and stage 1 through stage 4 chronic kidney disease, or unspecified chronic kidney disease (principal); I50.33 Acute on chronic diastolic (congestive) heart failure; N17.0 Acute kidney failure with tubular necrosis; R57.1 Hypovolemic shock; E44.0 Moderate protein-calorie malnutrition; D68.59 Other primary thrombophilia; J96.10 Chronic respiratory failure, unspecified whether with hypoxia or hypercapnia; I11.0 Hypertensive heart disease with heart failure; I48.0 Paroxysmal atrial fibrillation; Z99.81 Dependence on supplemental oxygen; Z66 Do not resuscitate; Z20.822 Contact with and (suspected) exposure to COVID-19; I25.10 Atherosclerotic heart disease of native coronary artery without angina pectoris; Z95.5 Presence of coronary angioplasty implant and graft; Z87.09 Personal history of other diseases of the respiratory system; E87.6 Hypokalemia; D64.9 Anemia, unspecified; D72.829 Elevated white blood cell count, unspecified; E83.42 Hypomagnesemia; E11.40 Type 2 diabetes mellitus with diabetic neuropathy, unspecified; E66.01 Morbid (severe) obesity due to excess calories; I25.2 Old myocardial infarction; K59.00 Constipation, unspecified; M06.9 Rheumatoid arthritis, unspecified; Z79.01 Long term (current) use of anticoagulants; Z79.84 Long term (current) use of oral hypoglycemic drugs; Z79.899 Other long term (current) drug therapy; Z90.710 Acquired absence of both cervix and uterus; Z86.69 Personal history of other diseases of the nervous system and sense organs; Z88.8 Allergy status to other drugs, medicaments and biological substances; N18.9 Chronic kidney disease, unspecified
CPT/HCPCS: 36410; 36415; 71045-TC; 80048-TC; 80053-TC; 80076-TC; 81001; 82962-TC; 83605-TC; 83735-TC; 83880; 84100-TC; 84443-TC; 84484-TC; 85025-TC; 87040-TC; 92526; 92611-TC; 94799-TC; 97110-TC; 97116-TC; 97530-TC; G0378; J1815; J1940; J3480; J7050; J8597